=== PATIENT | female | born 1985 | race Caucasian/White ===

== ENCOUNTER 2021-06-03 13:53 | Emergency (ER) | payer BC, MEDICAID, SELFPAY ==
[2021-06-03 14:02] VITALS: BP 148/83; PULSE 117; RESP 18; TEMP 36.6; O2SAT 96; BMI 32.5
[2021-06-03 15:26] VITALS: BP 142/90; PULSE 104; RESP 18; TEMP 36.9; O2SAT 100
--- NOTE | 2021-06-03 15:44 | ED_ITS ---
HPI - Skin/Abscess/Foreign Bdy General Chief complaint: Skin/Abscess/Foreign Body Stated complaint: needs drains removed post surgery Time Seen by Provider: 06/03/21 15:20 History of Present Illness HPI narrative: Patient is a 35-year-old female status post tummy tuck surgery done in [place] on May 28. Patient presented today needing to have her drain taken out. Patient claims that the surgery was successful. He did not have any fever chills coughing congestion upper respiratory symptoms. No discharge from the wound. Drain has been working. Patient denies any dizziness. No nausea no vomiting. No systemic complaints. Related Data Allergies Allergy/AdvReac Type Severity Reaction Status Date / Time No Known Allergies Allergy Unverified 04/25/20 15:29 [No Known Allergies*] Review of Systems Review of Systems: No fever no chills no cough no congestion or upper respiratory symptoms No nausea no vomiting no diarrhea No discharge from the wound All systems reviewed otherwise negative Yes all other systems are reviewed and are negative PMFSH Past Medical History Attestation statement: The following information was validated with the patient. Social History Social History Alcohol intake: never Patient Tobacco Use Status: Never used Tobacco Use of substances other than those prescribed or required for medical reasons: No Advance Directives: No Advance Directives Information Provided: Yes Patient : No Physical Exam Vital Signs: Vital Signs: Last Vital Signs Temp 98.4 F 06/03/21 15:26 Pulse 104 H 06/03/21 15:26 Resp 18 06/03/21 15:26 BP 142/90 H 06/03/21 15:26 Pulse Ox 100 06/03/21 15:26 Body Mass Index 32.5 Appearance: Alert. Oriented X3. No acute distress. Eyes: Pupils equal, round and reactive to light. ENT: Pharynx normal. Neck: Normal inspection. Neck supple. No lymph nodes noted. No crepitus CVS: Normal heart rate and rhythm. Pulses normal. Normal S1 and S2 Respiratory: No respiratory distress. Breath sounds normal. No Wheezing. No rales Abdomen: Soft and nontender. No rigidity. No distention. Positive wound that seems to be healing. + serosanginous d/c noted in the REJI drain Skin: Skin warm and dry. Normal skin color. Normal skin turgor. Extremities: No lower extremity edema. Neurovascular intact to all extremities. No Lacerations. No Rash Neuro: Oriented X 3. No motor deficit. No sensory deficit. Moving all extermities. No slurred speech MDM - Skin/Abscess/Foreign Bdy MDM Narrative Medical decision making narrative: case D/W Gener surgery operations representative, the drains were taken out. Attempted to contact pt's surgeon in [place] but no replay. Pt to be d/c follow up general surgery Medical Records Attestation: I reviewed the patient's medical records. Lab Data Attestation: I reviewed the patient's lab results. Discharge Plan Discharge Clinical Impression: Wound disruption, post-op, skin Patient Disposition: Home, Self-Care Instructions: Wound Infection (ED), Wound Healing and Your Diet (ED) Referrals: Arturo Montero MD [Physician] - 2 days
--- NOTE | 2021-06-03 16:12 | PC.NURSE ---
Pt alert and oriented x4, calm and cooperative. Pt had 2 REJI drains removed without issues. Pt tolerated well, no bleeding noted incision sites clean dry and intact. Clean dry sterile dressing applied to B/L drain incision sites by RN. Pt educated on dc teaching and stated an understanding. Pt denies pain. No IV in place, vitals stable.
--- NOTE | 2021-06-03 16:48 | P.CONGS_ITS ---
History of Present Illness Consult details Consult date: 06/03/21 Requesting physician: Michelle Stevenson Narrative: 35-year-old female patient status post abdominal plasty performed in [place] by the [facility] located at [address] [place] [address] [address] [facility] [id number], ( ) performed as an outpatient procedure on 05/27/2021. She reports staying in [place] for 1 week and then returning back to [place] after this. She was provided with a notes dating that her drain need to be removed when the output was less than 25 mL per day for 2 days in a row. She presents to the emergency department for this request for drain removal. General surgery was consulted for assistance in removing the drain. She reports feeling well and denies any ongoing incisional symptoms. Review of Systems Review of Systems: Yes all other systems are reviewed and are negative PMFSH Surgical History Surgical History (Updated 06/03/21 @ 16:54 by Arturo Montero MD) Status post abdominoplasty Social History Social History Alcohol intake: never Patient Tobacco Use Status: Never used Tobacco Use of substances other than those prescribed or required for medical reasons: No Advance Directives: No Advance Directives Information Provided: Yes Patient : No Meds Allergies Allergy/AdvReac Type Severity Reaction Status Date / Time No Known Allergies Allergy Unverified 04/25/20 15:29 [No Known Allergies*] Physical Exam Vital Signs: Vital Signs: Last Vital Signs Temp 98.4 F 06/03/21 15: Pulse 104 H 06/03/21 15:26 Resp 18 06/03/21 15:26 BP 142/90 H 06/03/21 15:26 Pulse Ox 100 06/03/21 15:26 Body Mass Index 32.5 Const: General: well developed Nutritional Appearance: well nourished Orientation/consciousness: patient oriented x3 Limitations: no limitations Resp: Effort & Inspection: normal respiratory effort Cardio: Jugular venous distension: no JVD Rate: regular rate Rhythm: regular rhythm GI: Other: Large abdominoplasty incision with Paul-Liang drains from both the left and right side of the incision. Incision is covered with a pink dressing which is clean dry and intact. The umbilicus reveals some remaining sutures in a running fashion. The umbilical skin appears dusky in color. Paul-Liang drains have mainly serous fluid within the container. Skin: Other: Warm, dry, no rash Neuro: General: patient oriented x3 Extrem: Other: No edema Results Labs Labs: All other labs normal. Assessment and Plan (1) Status post abdominoplasty: Status: Acute (2) Wound disruption, post-op, skin: Status: Acute 35-year-old female patient, presenting to the emergency department for routine wound management of an elective procedure [place] out of state as noted above. On examination the wounds are clean in the abdominal incision however the umbilical incision does reveal ischemic changes to the umbilical skin. This may need further management from a local plastic surgeon. The drains were removed as requested by the physician/surgeon. She should follow up as needed. Procedures Date of Service Date of Service: 06/03/21
== END 2021-06-03 16:14 | disposition home or self-care (01) ==
PROVIDERS: Emergency Provider Emergency Medicine Emergency Medical Services; PCP Internal Medicine
DX: T81.31XA Disruption of external operation (surgical) wound, not elsewhere classified, initial encounter (principal); Y82.8 Other medical devices associated with adverse incidents; Z98.890 Other specified postprocedural states
CPT/HCPCS: 99284

== ENCOUNTER 2023-05-04 14:12 | Outpatient (AMB) | payer MEDICAID, SELFPAY ==
--- NOTE | 2023-05-04 14:40 | A.OFFVIS_ITS ---
Intake VS Expanded 05/04/23 14:42 05/10/23 08:48 Height 5 ft 5.5 in 5 ft 5.5 in Weight 212 lb 4.882 oz 212 lb BMI 34.8 34.7 Intake Visit Reasons: Obesity/confirmed Allergies No Known Allergies [No Known Allergies*] Allergy (Unverified 04/25/20 15:29) HPI Nutrition Presentation Details Pt presents for MNT for obesity. Pt was referred by Fitz Jaime from [facility] Pt reports working working on reducing portion sizes and choosing higher protein foods . Pt reports meals consists of Protein shake dinner: red meat , rice or pasta or potatoes, salad , varies protein with chicken /shrimp salmon Reports her weight was 170s > 5 yrs ago Takes women's multivitamin beverages coffee in AM or can of soda , water or jucies food frequency fruits: 0-1/d vegetables: 4 serving/wk protein : 4-6 oz 2-3 times/d dairy: 0-1/d starches > 18 servings/d fried foods : 2x/wk Physical activity: Daily life activities SGB-Zlghgsx-Lf.Jeor Equation Height 5 ft 5.5 in Weight 212 lb Resting Metabolic Rate 1657.43 Calculated Activity Level Sedentary Calories Needed to Maintain Weight 1988.92 Diagnosis Nutrition problem #1 food nutri know defi As related to (etiology) #1 diagnosis As evidenced by (sign/symptom) #1 knowledge deficit of diet Monitoring/Goals Nutrition problem monitoring weight Nutrition goal/outcome wt loss 5lbs in 2 months Outcome progress verbalized understanding Learning/Education Readiness to learn good Stages of change preparation Educational materials provided Yes (Meal planning) Most Recent Diabetes Results: Creatinine 0.56 MG/DL (0.5-1.4) 01/30/19 Blood Urea Nitrogen 9 MG/DL (9-16) 01/30/19 AST 14 U/L (5-31) 01/30/19 ALT 8 U/L (0-31) 01/30/19 [facility] Surgical History (Updated 06/03/21 @ 16:54 by Arturo Montero MD) Status post abdominoplasty Social History Alcohol intake: never Patient Tobacco Use Status: Never used Tobacco Assessment & Plan Assessment & Plan (1) Obesity (BMI 30.0-34.9): Code(s): E66.9 - Obesity, unspecified Plan: wt: 96 kg Est kcal needs as per MSJ: 2000 (40% carb, 30% protein/fat) Est fluid needs as per 30 ml/d: 2900 Est prot per day as per 1 g/kg bw: 96 Recommend fiber intake : 8-10 g per day and gradually increase to 25-28 g per day for women and 35-38 g for men or as tolerated Recommend sodium intake per day : less than 2000 mg Educated patient on: ( R = reviewed V = verbalizes understanding N/R = needs review N/A = not applicable * Food sources of carbohydrate, adequate serving sizes and its role in various health conditions: R * Differences between complex carbohydrates a simple carbohydrates, role of fiber in diet: R * Differences between types of fats and role in diet (mono on saturated fat fatty acids, saturated fatty acids, trans fats): R * Food sources of sodium in salt and healthy modifications for heart health in kidney health: R * Vitamins and minerals: R * Healthy plate method concept: R * Physical activity: Benefits a precaution: R Patient Instructions: Work on having 3 meals a day following healthy plate method see 1999 calorie meal plan as reference Coding Level of Care Code Nutr Indiv Intake (48015) Diagnoses Obesity (BMI 30.0-34.9) E66.9 Time Spent (min) 30
[2023-05-04 14:42] VITALS: BMI 34.8
[2023-05-10 08:48] VITALS: BMI 34.7
== END 2023-05-04 15:14 | disposition home or self-care (01) ==
PROVIDERS: PCP Internal Medicine; Visit Provider Dietitian, Registered
DX: E66.9 Obesity, unspecified (principal)

== ENCOUNTER → 2023-05-04 14:12 | Outpatient (BNVA) | payer MEDICAID, SELFPAY | PROVIDERS: PCP Internal Medicine; Visit Provider Dietitian, Registered | DX: E66.9 Obesity, unspecified (principal); Z68.34 Body mass index [BMI] 34.0-34.9, adult | CPT/HCPCS: 97802 ==